=== PATIENT | female | born 1985 | race Caucasian/White ===

== ENCOUNTER 2018-02-10 15:41 | Emergency (ER) | payer SELFPAY ==
[2018-02-10 16:50] VITALS: BMI 27.3
[2018-02-10 17:52] LABS: SQUAMOUS EPITHIAL 1 /hpf (0-5); URINE BACTERIA RARE (<OCC); URINE BILIRUBIN NEGATIVE (NEGATIVE); URINE BLOOD NEGATIVE (NEGATIVE); URINE CLARITY SLIGHTY-CLOUDY (Clear); URINE COLOR YELLOW (YELLOW); URINE GLUCOSE (UA) NEG (Normal); URINE LEUKOCYTE ESTERASE NEG Leu/uL (Negative); URINE PROTEIN NEGATIVE (NEGATIVE); URINE UROBILINOGEN 0.2-1.0 mg/dL (0.2-1.0)
--- NOTE | 2018-02-10 18:03 | US ---
Date of service: 02/10/2018 PROCEDURE: OB Pelvic Ultrasound HISTORY: LMP: 06/30/2017 COMPARISON: None available. FINDINGS: UTERUS: Placenta: Anterior Presentation: Cephalic BPD: 8.1 cm compatible with estimated gestational age of 32 weeks, 4 days HC: 29.1 cm compatible with estimated gestational age of 32 weeks, 1 day HC: 28.1 cm compatible with estimated gestational age of 32 weeks, 1 day FL: 6.2 cm compatible with estimated gestational age 32 weeks, 1 day Heart rate: 137 bpm. age (Ultrasound estimated): 32 weeks, 2 days Marii-gestational hemorrhage: None. Date of delivery (Ultrasound estimated) : 04/05/2018 EFW: 1918 grams +/-287.8 grams (4 pounds 4 ounces +/-10 ounce) CERVIX: Measures 3.8 cm. Long and closed. No cervical abnormality seen. FREE FLUID: None. OTHER FINDINGS: None. IMPRESSION: Single live intrauterine gestation with average ultrasound age of 32 weeks, 2 days. heart rate 137 beats per minute. Cervix long and closed..
[2018-02-10 23:40] VITALS: BP 106/56; PULSE 75; RESP 18; TEMP 98.2; O2SAT 96
--- NOTE | 2018-02-11 01:07 | OBHP ---
Datetime: 02/10/2018 16:30 IP Adm Impression: , intrauterine IP Admit Plan: Observation/Evaluation; Discharge home Admit Comment, IP Provider: 32 y/o female at 32wk2d GA (PRERNA 03/30/18) c/o abdominal pressure 7/10 in severity persisting for 3 days. She denies vaginal bleeding, VFL, abdominal cramping. she de nies n/v/d/c. She endorses movement. Was last sexually active months ago. She is on vacation [facility] [place] and does not have any records with her. PNC: OB in Replaced By [facility] Pmhx: Hypothyroidism OBhx: , NSVDx1 via IOL. Denies STD hx PSurg: denies FamHx: denies HomeRx: Levothyroxine 100mcg Allergies: NKDA Gen: not in acute distress Heart: RRR, S1S2 present Lungs: clear to auscultation bilaterally Abd: Gravid, normal bowel sounds, soft, non-tender SVE: (Chaperoned by Nurse Alannah) cervix closed, no signs of bleeding/discharge Extremities: no pedal edema, no calf tenderness Neuro: alert/oriented x3 Assessment and Plan: 32 y/o female at 32wk2d GA c/o abdominal pressure [place] monitor: no contractions FH reactive w/ moderate variability SVE: cervix closed Will check U/S RPR, HIV, HBsAg ordered 6:53PM U/S showed IUP at 32.2 GA HIV non reactive U/A negative Patient states she feels better Patient tolerated PO dinner Patient stable to go home, given ER precautions Central scheduling e-mailed to arrange appointment for outpatient follow up at [facility] Case discussed w/ attending physician Karlee Pike, PGY-I Addendum: I saw examined patient up presentation and follow-up. All labs and ultrasound within normal limits . heart tracing category 1. Patient discharged home with labor precautions. Patient giv en contact information for scheduling appointment in clinic. [place] Pelvic Type - PN: Adequate Extremities - PN: Normal Abdomen - PN: Normal Back - PN: Normal Breast - PN: Not Done Lungs - PN: Normal Heart - PN: Normal Thyroid - PN: Normal Neurologic - PN: Normal HEENT - PN: Normal General - PN: Normal FHR - Baseline A Provider: 140 Gestation - Est Wks by US: 32.2 EGA AdmitDate IP: 33.1 Vital Signs Provider: Reviewed; Within Normal Limits IP Chief Complaint: Maternal discomfort NICHD Variability Prov Fetus A: Moderate 6-25bpm NICHD Accel Fetus A IP Provider: [id number] FHR Category Provider Fetus A: Category I NICHD Decel Fetus A IP Provider: None Dilatation, Provider: 0 Genitourinary Exam: Normal DTRs - PN: Not Done
== END 2018-02-10 19:13 | disposition home or self-care (01) ==
LOC: H.EROB2 15:41
DX: O26.93 Pregnancy related conditions, unspecified, third trimester (principal); R10.2 Pelvic and perineal pain; Z3A.32 32 weeks gestation of pregnancy